=== PATIENT | male | born 1985 | race Caucasian/White ===

== ENCOUNTER 2017-01-04 23:49 | Emergency (ER) | payer OTHER ==
[~2017-01-04] VITALS: Ht 175.3 cm; Wt 89.8 kg
[~2017-01-04 23:49] MED LIST: ASPI81TA2 PO
[2017-01-04 23:55] VITALS: BP_SYST 156
[2017-01-05 01:00] VITALS: BP_SYST 147
[2017-01-06 09:08] LABS: HEPATITIS B CORE AB, TOTAL Negative (Negative); HEPATITIS B SURFACE AG Negative (Negative)
== END 2017-01-05 01:00 | disposition home or self-care (01) ==
LOC: SED 23:49
DX: S69.92XA Unspecified injury of left wrist, hand and finger(s), initial encounter (principal); W46.0XXA Contact with hypodermic needle, initial encounter; Y93.89 Activity, other specified; Y92.89 Other specified places as the place of occurrence of the external cause; Y99.8 Other external cause status
CPT/HCPCS: 36415; 86704; 86706; 86803; 87340; 99283